=== PATIENT | male | born 1965 | race Caucasian/White ===

== ENCOUNTER 2016-05-15 18:53 | Emergency (ER) | payer OTHER ==
--- NOTE | 2016-05-15 21:23 | ED ORDER SUMMARY ---
..... Patient: SONYA LANDIS OrderSheet [facility] VisitID: [id number] [address] [place] [address] 50y, M Registration Date/Time: 05/15/2016 ORDER SHEET Weight: 99.7 kg (stated) Allergies: None GENERAL ORDERS: - (eye patch right eye.) (21:21 05/15/2016 Loretta WEN) [facility] 21[facility] (21:46 SRoberts R.N.) MEDICATION ORDERS: Alcaine Eye Drops (Solution 0.5 %) 1 drop (right eye) (19:22 05/15/2016 SRoberts R.N. verbal order read back to Rita WEN) (Ack 19:23 SRoberts R.N.) (19:23 SRoberts R.N.) IV FLUIDS: ORDER SHEET NOTES: [Electronically signed by Vira Jonas R.N. (21:50 05/15/2016)] [Electronically signed by Gene Baca MD (20:53 05/16/2016)] [Electronically locked/signed by Vira Jonas R.N. (21:50 05/15/2016)]
--- NOTE | 2016-05-15 21:23 | ED NURSING NOTES ---
Clinical Report - Nurses [facility] [address] [place] [address] 05/15/2016 18:54 Patient: SONYA LANDIS TRIAGE Triage time 19:14. Acuity: LEVEL 3. Chief Complaint: REDNESS, PAIN and FOREIGN BODY TO RIGHT EYE. Alert. No acute distress. (painful). VISUAL ACUITY: Visual acuity performed: unable to obtain due to pain. --19:18 Vira Jonas R.N. 19:14 05/15/16. BP: 128/79. HR: 77. RR: 20. O2 saturation: 100%. Temp: 98.4 F. Pain level now: 10/23. --19:18 Vira Jonas R.N. 19:14 05/15/16. BP: 128/79. HR: 77. RR: 20. O2 saturation: 100%. Temp: 98.4 F. Pain level now: 10/23. --19:18 Vira Jonas R.N. Weight: 99.7 kg stated. Height/Length: 70 inches Per Patient. BMI: 31.5. --19:16 Vira Jonas R.N. Medications RisperDAL Oral 3 mg, daily. --19:15 Vira Jonas R.N. Medication/allergy information source: the patient. --19:18 Vira Jonas R.N. Allergies None. --19:15 Vira Jonas R.N. History Arrived by private vehicle. Historian: patient. Accompanied by friend. No primary care physician. This started today. He sustained injury. Mechanism- Stick flew up and hit patient in the rt eye, upper lid. He has had eye discomfort, eye irritation, photophobia, blurred vision and decreased vision. Treatment MEDICAL DEVICE: Irrigation. PAST MEDICAL HX: Immunizations: has received tetanus within 10 years. ( bipolar). SURGERY HX: No history of previous surgery. SOCIAL HX: Heavy tobacco smoker- less than 1 pack per day. No alcohol use or drug use. FALL RISK ASSESSMENT: Fall risk assessment completed. No fall risk identified. NUTRITIONAL RISK ASSESSMENT: The nutritional risk assessment revealed no deficiencies. FUNCTIONAL ASSESSMENT: Functional assessment: no impairments noted. LEARNING NEEDS ASSESSMENT: The learning needs assessment revealed no barriers. SKIN INTEGRITY ASSESSMENT: Skin integrity risk assessment completed. No skin integrity risk identified. --19:18 Vira Jonas R.N. Interventions ID band on patient. To room. --19:18 Vira Jonas R.N. PHYSICAL ASSESSMENT Ambulatory to room. Patient gowned. GENERAL / NEURO / PSYCH: Alert. Appears in no acute distress. Appears in pain. RESPIRATORY: Respirations not labored. CVS: Capillary refill less than 2 seconds. SKIN: Skin is warm and dry. Normal skin turgor. --19:19 Vira Jonas R.N. HEENT: Visual acuity: unable to obtain due to pain. --19:19 Vira Jonas R.N. NURSING PROGRESS NOTES Head of bed elevated. Two patient identifiers checked. Call light placed in reach. Side rails up x 2. Bed placed in lowest position. Brakes of bed on. Patient ready for evaluation. --19:19 Vira Jonas R.N. 19:23 05/15/2016 Alcaine (Proparacaine HCl) Eye Drops 1 drop given. Given in the right eye. Allergies verified and confirmed 5 rights. --19:23 Vira Jonas R.N. 20:30 05/15/2016 Alcaine (Proparacaine HCl) Eye Drops 1 drop given. Given in the right eye. Allergies verified and confirmed 5 rights. --21:46 Vira Jonas R.N. 21:35. ( Eye patch to the rt eye). --21:47 Vira Jonas R.N. DISPOSITION / DISCHARGE 21:30. Condition at departure: improved. No learning barriers present. Discharge instructions provided and reviewed with the patient and spouse. Reviewed medication(s) side effects, precautions, dosing and course information. Prescription(s) given to the patient. Patient verbalized understanding. Written instructions provided in [place]onian. The patient was discharged home and accompanied by spouse. He left the Emergency Department ambulatory and via private vehicle. Spouse driving. Medication list reviewed and validated. --21:50 Vira Jonas R.N. 21:40 05/15/16. BP: 126/75. HR: 72. RR: 20. O2 saturation: 100% on room air. Temp: deferred. Pain level now: 06/23. 20:27 05/15/16. BP: 129/74. HR: 83. RR: 20. O2 saturation: 98% on room air. 19:14 05/15/16. BP: 128/79. HR: 77. RR: 20. O2 saturation: 100%. Temp: 98.4 F. Pain level now: 10/23. --21:50 Vira Jonas R.N. Locked/Released at 05/15/2016 21:50 by Vira Jonas R.N.
--- NOTE | 2016-05-15 21:23 | ED ORDER SUMMARY ---
..... Patient: SONYA LANDIS OrderSheet [facility] VisitID: [id number] [address] [address] 50y, M Registration Date/Time: 05/15/2016 ORDER SHEET Weight: 99.7 kg (stated) Allergies: None GENERAL ORDERS: - (eye patch right eye.) (21:21 05/15/2016 Loretta WEN) ([facility]ck 21:[facility] (21:46 SRoberts R.N.) MEDICATION ORDERS: Alcaine Eye Drops (Solution 0.5 %) 1 drop (right eye) (19:22 05/15/2016 SRoberts R.N. verbal order read back to Rita WEN) (Ack 19:23 SRoberts R.N.) (19:23 SRoberts R.N.) IV FLUIDS: ORDER SHEET NOTES: [Electronically signed by Vira Jonas R.N. (21:50 05/15/2016)] [Electronically signed by Gene Baca MD (20:53 05/16/2016)] [Electronically locked/signed by Vira Jonas R.N. (21:50 05/15/2016)]
--- NOTE | 2016-05-15 21:23 | ED NURSING NOTES ---
Clinical Report - Nurses [facility] [address] [place] [address] 05/15/2016 18:54 Patient: SONYA LANDIS TRIAGE Triage time 19:14. Acuity: LEVEL 3. Chief Complaint: REDNESS, PAIN and FOREIGN BODY TO RIGHT EYE. Alert. No acute distress. (painful). VISUAL ACUITY: Visual acuity performed: unable to obtain due to pain. --19:18 Vira Jonas R.N. 19:14 05/15/16. BP: 128/79. HR: 77. RR: 20. O2 saturation: 100%. Temp: 98.4 F. Pain level now: 10/23. --19:18 Vira Jonas R.N. 19:14 05/15/16. BP: 128/79. HR: 77. RR: 20. O2 saturation: 100%. Temp: 98.4 F. Pain level now: 10/23. --19:18 Vira Jonas R.N. Weight: 99.7 kg stated. Height/Length: 70 inches Per Patient. BMI: 31.5. --19:16 Vira Jonas R.N. Medications RisperDAL Oral 3 mg, daily. --19:15 Vira Jonas R.N. Medication/allergy information source: the patient. --19:18 Vira Jonas R.N. Allergies None. --19:15 Vira Jonas R.N. History Arrived by private vehicle. Historian: patient. Accompanied by friend. No primary care physician. This started today. He sustained injury. Mechanism- Stick flew up and hit patient in the rt eye, upper lid. He has had eye discomfort, eye irritation, photophobia, blurred vision and decreased vision. Treatment ADJUNCT PROFESSOR: Irrigation. PAST MEDICAL HX: Immunizations: has received tetanus within 10 years. ( bipolar). SURGERY HX: No history of previous surgery. SOCIAL HX: Heavy tobacco smoker- less than 1 pack per day. No alcohol use or drug use. FALL RISK ASSESSMENT: Fall risk assessment completed. No fall risk identified. NUTRITIONAL RISK ASSESSMENT: The nutritional risk assessment revealed no deficiencies. FUNCTIONAL ASSESSMENT: Functional assessment: no impairments noted. LEARNING NEEDS ASSESSMENT: The learning needs assessment revealed no barriers. SKIN INTEGRITY ASSESSMENT: Skin integrity risk assessment completed. No skin integrity risk identified. --19:18 Vira Jonas R.N. Interventions ID band on patient. To room. --19:18 Vira Jonas R.N. PHYSICAL ASSESSMENT Ambulatory to room. Patient gowned. GENERAL / NEURO / PSYCH: Alert. Appears in no acute distress. Appears in pain. RESPIRATORY: Respirations not labored. CVS: Capillary refill less than 2 seconds. SKIN: Skin is warm and dry. Normal skin turgor. --19:19 Vira Jonas R.N. HEENT: Visual acuity: unable to obtain due to pain. --19:19 Vira Jonas R.N. NURSING PROGRESS NOTES Head of bed elevated. Two patient identifiers checked. Call light placed in reach. Side rails up x 2. Bed placed in lowest position. Brakes of bed on. Patient ready for evaluation. --19:19 Vira Jonas R.N. 19:23 05/15/2016 Alcaine (Proparacaine HCl) Eye Drops 1 drop given. Given in the right eye. Allergies verified and confirmed 5 rights. --19:23 Vria Jonas R.N. 20:30 05/15/2016 Alcaine (Proparacaine HCl) Eye Drops 1 drop given. Given in the right eye. Allergies verified and confirmed 5 rights. --21:46 Vira Jonas R.N. 21:35. ( Eye patch to the rt eye). --21:47 Vira Jonas R.N. DISPOSITION / DISCHARGE 21:30. Condition at departure: improved. No learning barriers present. Discharge instructions provided and reviewed with the patient and spouse. Reviewed medication(s) side effects, precautions, dosing and course information. Prescription(s) given to the patient. Patient verbalized understanding. Written instructions provided in [place]al[place]. The patient was discharged home and accompanied by spouse. He left the Emergency Department ambulatory and via private vehicle. Spouse driving. Medication list reviewed and validated. --21:50 Vira Jonas R.N. 21:40 05/15/16. BP: 126/75. HR: 72. RR: 20. O2 saturation: 100% on room air. Temp: deferred. Pain level now: 06/23. 20:27 05/15/16. BP: 129/74. HR: 83. RR: 20. O2 saturation: 98% on room air. 19:14 05/15/16. BP: 128/79. HR: 77. RR: 20. O2 saturation: 100%. Temp: 98.4 F. Pain level now: 10/23. --21:50 Vira Jonas R.N. Locked/Released at 05/15/2016 21:50 by Vira Jonas R.N.
--- NOTE | 2016-05-15 21:23 | ED CLINICAL REPORT ---
Clinical Report - Physicians/Mid Levels Located Within [facility] [address] [place] [address] 05/15/2016 18:54 Patient: SONYA LANDIS Time Seen: 19:19. Arrived- By private vehicle. Historian- patient. CPT: ER phys charges level 3 (#455136). HISTORY OF PRESENT ILLNESS Chief Complaint: EYE PAIN. This started today, involves the right eye and is characterized as moderate in severity. The patient sustained injury. This occurred at home. He probably has dust foreign material in the right eye. Eye pain and discomfort. Blurred vision. Decreased vision (due o pain and not wanting to keep eye open.). REVIEW OF SYSTEMS No fever, sore throat or cough. All systems otherwise negative, except as recorded above. PAST HISTORY See nurses notes. Immunizations: has received tetanus within 10 years. ( bipolar). No history of prior eye injury, diabetes mellitus or glaucoma. He does not wear contact lenses. SOCIAL HISTORY Heavy tobacco smoker (cigarette)- 1 pack per day. No alcohol use or drug use. PHYSICAL EXAM Vital Signs: 05/15/2016 19:14 BP: 128/79. HR: 77. RR: 20. O2 saturation: 100%. Temp: 98.4 F. Pain level now: 8/10. Appearance: Alert. Appears to be in pain. Patient in mild distress. HEENT: Pharynx normal. Rt Eye: Mild conjunctival edema (lateral). Mildly injected conjunctiva. Single medium sized superficial corneal abrasion located superiorly (square shaped). Single medium-sized area of fluorescein dye uptake on the cornea superiorly. Eyes: Visual acuity noted- see nurse's notes. Right eyelid everted for examination. Right cornea examined with fluorescein stain. Eyelids appear normal to inspection. Pupils equal, round and reactive to light. Accommodation normal. EOMs intact. Periorbital areas appear normal to inspection. Anterior chambers clear. Anterior chambers of normal depth. Lt Eye: Left eye exam normal. Neck: Neck supple. CVS: Normal heart rate and rhythm. Skin: No rash. Neuro: Oriented X 3. PROGRESS AND PROCEDURES Removal of Eye Foreign Body: After topical anesthesia with Proparacaine, a single foreign body was successfully removed from the right eyelid's undersurface using magnification, a moistened sterile cotton swab and irrigation, lid eversion, fluorescein and a Wood's lamp. There were no complications encountered. Aftercare included antibiotic ointment and an eye patch on the right eye. The patient was cooperative. No rust ring removed. (particle of sand removed .). Course of Care: Pt kept complaining of FB under upper lid. Upper lid was swept with q tip and a grain of sand was removed. Patient/family counseled. Disposition: Discharged. Condition: stable and improved. CLINICAL IMPRESSION Medium corneal abrasion to the right eye with foreign body. Removed conjunctival foreign body to right eye (Upper lid). INSTRUCTIONS Wear eye patch until better. Warnings: Further evaluation is necessary. GENERAL WARNINGS: Return or contact your physician immediately if your condition worsens or changes unexpectedly, if not improving as expected, or if other problems arise. Your Current Medications: CONTINUE TAKING THE FOLLOWING MEDICATIONS: RisperDAL Oral : 3 mg daily. Prescription Medications: Hydrocodone/APAP 5mg/325mg: take 1 to 2 orally every 6 hours as needed for pain. Dispense fifteen (15). No refills. Gentamicin ophthalmic ointment 0.3% : Apply 1/2 inch to inner aspect of the lower lid on the affected eye every 8 hours for 1 week. Dispense three and one half (3.5) gm. No refills. Follow-up: Follow up with your doctor in two days if not well. Call for an appointment. Understanding of the discharge instructions verbalized by patient and family. (Electronically signed by Gene Baca MD 05/16/2016 20:53)
--- NOTE | 2016-05-15 21:23 | ED CLINICAL REPORT ---
Clinical Report - Physicians/Mid Levels [facility] [address] [place] [address] 05/15/2016 18:54 Patient: SONYA LANDIS Time Seen: 19:19. Arrived- By private vehicle. Historian- patient. CPT: ER phys charges level 3 (#[id number]). HISTORY OF PRESENT ILLNESS Chief Complaint: EYE PAIN. This started today, involves the right eye and is characterized as moderate in severity. The patient sustained injury. This occurred at home. He probably has dust foreign material in the right eye. Eye pain and discomfort. Blurred vision. Decreased vision (due o pain and not wanting to keep eye open.). REVIEW OF SYSTEMS No fever, sore throat or cough. All systems otherwise negative, except as recorded above. PAST HISTORY See nurses notes. Immunizations: has received tetanus within 10 years. ( bipolar). No history of prior eye injury, diabetes mellitus or glaucoma. He does not wear contact lenses. SOCIAL HISTORY Heavy tobacco smoker (cigarette)- 1 pack per day. No alcohol use or drug use. PHYSICAL EXAM Vital Signs: 05/15/2016 19:14 BP: 128/79. HR: 77. RR: 20. O2 saturation: 100%. Temp: 98.4 F. Pain level now: 8/10. Appearance: Alert. Appears to be in pain. Patient in mild distress. HEENT: Pharynx normal. Rt Eye: Mild conjunctival edema (lateral). Mildly injected conjunctiva. Single medium sized superficial corneal abrasion located superiorly (square shaped). Single medium-sized area of fluorescein dye uptake on the cornea superiorly. Eyes: Visual acuity noted- see nurse's notes. Right eyelid everted for examination. Right cornea examined with fluorescein stain. Eyelids appear normal to inspection. Pupils equal, round and reactive to light. Accommodation normal. EOMs intact. Periorbital areas appear normal to inspection. Anterior chambers clear. Anterior chambers of normal depth. Lt Eye: Left eye exam normal. Neck: Neck supple. CVS: Normal heart rate and rhythm. Skin: No rash. Neuro: Oriented X 3. PROGRESS AND PROCEDURES Removal of Eye Foreign Body: After topical anesthesia with Proparacaine, a single foreign body was successfully removed from the right eyelid's undersurface using magnification, a moistened sterile cotton swab and irrigation, lid eversion, fluorescein and a Wood's lamp. There were no complications encountered. Aftercare included antibiotic ointment and an eye patch on the right eye. The patient was cooperative. No rust ring removed. (particle of sand removed .). Course of Care: Pt kept complaining of FB under upper lid. Upper lid was swept with q tip and a grain of sand was removed. Patient/family counseled. Disposition: Discharged. Condition: stable and improved. CLINICAL IMPRESSION Medium corneal abrasion to the right eye with foreign body. Removed conjunctival foreign body to right eye (Upper lid). INSTRUCTIONS Wear eye patch until better. Warnings: Further evaluation is necessary. GENERAL WARNINGS: Return or contact your physician immediately if your condition worsens or changes unexpectedly, if not improving as expected, or if other problems arise. Your Current Medications: CONTINUE TAKING THE FOLLOWING MEDICATIONS: RisperDAL Oral : 3 mg daily. Prescription Medications: Hydrocodone/APAP 5mg/325mg: take 1 to 2 orally every 6 hours as needed for pain. Dispense fifteen (15). No refills. Gentamicin ophthalmic ointment 0.3% : Apply 1/2 inch to inner aspect of the lower lid on the affected eye every 8 hours for 1 week. Dispense three and one half (3.5) gm. No refills. Follow-up: Follow up with your doctor in two days if not well. Call for an appointment. Understanding of the discharge instructions verbalized by patient and family. (Electronically signed by Gene Baca MD 05/16/2016 20:53)
--- NOTE | 2016-05-16 20:53 | ED MED RECONCILIATION SUMMARY ---
Patient: SONYA LANDIS Medication Reconciliation Report [facility] VisitID: [id number] [address] [address] 50y, M Registration Date/Time: 05/15/2016 Weight: 99.7 kg Height/Length: 70 in. BMI: 31.5 ALLERGIES: None The patient's Home Medications are listed below: CONTINUE TAKING THE FOLLOWING MEDICATIONS: RisperDAL Oral 3 mg, daily The source(s) of the original Home Medication information: patient The following Medications were given to the patient in the Emergency Department: Alcaine [Eye Drops] Eye Drops 1 drop, administered: 05/15/2016 7:23:00 PM Alcaine [Eye Drops] Eye Drops 1 drop, administered: 05/15/2016 8:30:00 PM The following Medications were prescribed to the patient: Hydrocodone/APAP 5mg/325mg: take 1 to 2 orally every 6 hours as needed for pain. Dispense fifteen (15). No refills. -- Gene Baca MD Gentamicin ophthalmic ointment 0.3% : Apply 1/2 inch to inner aspect of the lower lid on the affected eye every 8 hours for 1 week. Dispense three and one half (3.5) gm. No refills. -- Gene Baca MD
--- NOTE | 2016-05-16 20:53 | ED MED RECONCILIATION SUMMARY ---
Patient: SONYA LANDIS Medication Reconciliation Report [facility] VisitID: [id number] [address] [place] [address] 50y, M Registration Date/Time: 05/15/2016 Weight: 99.7 kg Height/Length: 70 in. BMI: 31.5 ALLERGIES: None The patient's Home Medications are listed below: CONTINUE TAKING THE FOLLOWING MEDICATIONS: RisperDAL Oral 3 mg, daily The source(s) of the original Home Medication information: patient The following Medications were given to the patient in the Emergency Department: Alcaine [Eye Drops] Eye Drops 1 drop, administered: 05/15/2016 7:23:00 PM Alcaine [Eye Drops] Eye Drops 1 drop, administered: 05/15/2016 8:30:00 PM The following Medications were prescribed to the patient: Hydrocodone/APAP 5mg/325mg: take 1 to 2 orally every 6 hours as needed for pain. Dispense fifteen (15). No refills. -- Gene Baca MD Gentamicin ophthalmic ointment 0.3% : Apply 1/2 inch to inner aspect of the lower lid on the affected eye every 8 hours for 1 week. Dispense three and one half (3.5) gm. No refills. -- Gene Baca MD
--- NOTE | 2016-05-16 20:53 | ED DISCHARGE INSTRUCTIONS ---
Patient: SONYA LANDIS General Instructions [facility] VisitID: [id number] [address] [place] [address] 50y, M Registration Date/Time: 05/15/2016 Medium corneal abrasion to the right eye with foreign body. Removed conjunctival foreign body to right eye (Upper lid). INSTRUCTIONS Wear eye patch until better. Warnings: Further evaluation is necessary. GENERAL WARNINGS: Return or contact your physician immediately if your condition worsens or changes unexpectedly, if not improving as expected, or if other problems arise. Your Current Medications: CONTINUE TAKING THE FOLLOWING MEDICATIONS: RisperDAL Oral : 3 mg daily. Prescription Medications: Hydrocodone/APAP 5mg/325mg: take 1 to 2 orally every 6 hours as needed for pain. Dispense fifteen (15). No refills. Gentamicin ophthalmic ointment 0.3% : Apply 1/2 inch to inner aspect of the lower lid on the affected eye every 8 hours for 1 week. Dispense three and one half (3.5) gm. No refills. Follow-up: Follow up with your doctor in two days if not well. Call for an appointment. Understanding of the discharge instructions verbalized by patient and family. ADDITIONAL INFORMATION Corneal Abrasion The cornea is the clear part in the front of the eye. This sensitive area is very painful when injured. There may be tearing and your vision may be blurry until healing occurs. You may be sensitive to light. This part of the body heals quickly. You can expect the pain to go away within 24-48 hours. If the abrasion is large or deep, your doctor may apply an eye patch, although this is not always done. An antibiotic ointment or eye drops may also be used to prevent infection. Numbing drops may be used to relieve the pain temporarily so that your eyes can be examined. However, these drops cannot be prescribed for home use because that would slow down the healing process. Also, if you cant feel your eye, there is a chance of accidentally injuring your eye further without knowing it. Home Care: A cold pack (ice in a plastic bag, wrapped in a towel) may be applied over the eye (or eyepatch) for 20 minutes at a time, to reduce pain. You may use acetaminophen (Tylenol) or ibuprofen (Motrin, Advil) to control pain, unless another pain medicine was prescribed. [NOTE: If you have chronic liver or kidney disease or ever had a stomach ulcer or GI bleeding, talk with your doctor before using these medicines.] Rest your eyes and do not read until symptoms are gone. If you use contact lenses, do not wear them until all symptoms are gone. If your vision is affected by the corneal abrasion or if an eyepatch was applied, DO NOT DRIVE a motor vehicle or operate machinery until all symptoms are gone. Otherwise, you would have trouble judging distances with only one eye. If your eyes are sensitive to light, try wearing sunglasses, or stay indoors, until symptoms go away. Follow Up as advised by our staff. Serious abrasions may be referred to an compliance specialist (plant associate). If no patch was used but the pain continues for more than 48 hours, you should have another exam. Return to this facility or contact the referral doctor to arrange this. If your eye was patched and if you were asked to remove the patch yourself, see your doctor or return to this facility if your pain is still present after the patch is removed. If you were given a return appointment for patch removal and re-exam, do not miss this. It could be harmful if the patch remains in place longer than advised. Get Prompt Medical Attention if any of the following occur: Increasing eye pain or pain that does not improve after 24 hours Discharge from the eye Increasing redness of the eye or swelling of the eyelids Your vision gets worse Eye Patch An eye patch is used when there has been an injury to the eye. It provides protection from further injury and also keeps the eyelid closed which promotes healing after a corneal injury. There are different types of patches. One type is stiff and held on with an elastic band. The other kind is made of gauze and is taped in place. Home Care: If you are having pain, you may place an ice pack directly over the eye patch. If you were told to remove the patch to put medicine in your eye, before you reapply the patch be sure your eyelid is closed. Do not patch your eye in the openposition. Otherwise, the patch will press against and injure the exposed cornea (clear, front part of the eye). If you were given a return appointment for patch removal and re-exam, do not miss it. An eye patch should not be left in place for more than 48 hours, unless advised to do so by your doctor. DO NOT DRIVE a motor vehicle or operate machinery with the patch in place since you will have difficulty in judging distances with only one eye. You have been given the following additional information: Corneal Abrasion Eye Patch (Electronically signed by Gene Baca MD 05/16/2016 20:53)
--- NOTE | 2016-05-16 20:53 | ED MAR SUMMARY ---
..... Medication Administration Record [facility] [address] [place] [address] Patient: SONYA LANDIS Visit ID: [id number] 50y, M Weight: 99.7 kg Height/Length: 70 in BMI: 31.5 ALLERGIES: None Given 19:23 05/15/2016 Vira Jonas R.N. Medication Administered: ALCAINE [EYE DROPS] (PROPARACAINE HCL), Dose: 1 drop Eye Drops. Medication Ordered: Alcaine Eye Drops (Solution 0.5 %) 1 drop (right eye). Given 20:30 05/15/2016 Vira Jonas R.N. Medication Administered: ALCAINE [EYE DROPS] (PROPARACAINE HCL), Dose: 1 drop Eye Drops. Medication Ordered: Alcaine Eye Drops (Solution 0.5 %) 1 drop (right eye).
--- NOTE | 2016-05-16 20:53 | ED MAR SUMMARY ---
..... Medication Administration Record [facility] [address] [place] [address] Patient: SONYA LANDIS Visit ID: [id number] 50y, M Weight: 99.7 kg Height/Length: 70 in BMI: 31.5 ALLERGIES: None Given 19:23 05/15/2016 Vira Jonas R.N. Medication Administered: ALCAINE [EYE DROPS] (PROPARACAINE HCL), Dose: 1 drop Eye Drops. Medication Ordered: Alcaine Eye Drops (Solution 0.5 %) 1 drop (right eye). Given 20:30 05/15/2016 Vira Jonas R.N. Medication Administered: ALCAINE [EYE DROPS] (PROPARACAINE HCL), Dose: 1 drop Eye Drops. Medication Ordered: Alcaine Eye Drops (Solution 0.5 %) 1 drop (right eye).
== END 2016-05-15 21:40 | disposition home or self-care (01) ==
LOC: ED SRH 18:53
DX: T15.01XA Foreign body in cornea, right eye, initial encounter (principal); T15.11XA Foreign body in conjunctival sac, right eye, initial encounter; W22.8XXA Striking against or struck by other objects, initial encounter; Y93.89 Activity, other specified; Y92.89 Other specified places as the place of occurrence of the external cause; Y99.8 Other external cause status; F31.9 Bipolar disorder, unspecified; Z79.899 Other long term (current) drug therapy; F17.210 Nicotine dependence, cigarettes, uncomplicated